=== PATIENT | male | born 1980 | race Two or more races ===

== ENCOUNTER 2017-03-24 10:43 | Emergency (ER) | payer SELFPAY ==
[~2017-03-24] VITALS: Ht 180.3 cm; Wt 104.3 kg
[~2017-03-24 10:43] MED LIST: BENA40TA2 PO; CARV6.25 PO; LORA2TAB95 PO
--- NOTE | 2017-03-24 11:00 | NUR ---
PT AMBULATORY TO ER BED 09. C/O RLQ ABDOMINAL PAIN. NOTICED A "BUMPED" 10 DAYS AGO. WENT TO PRIMARY AND TOLD HIM "ITS FAT." HURTS WHEN COUGHING. ALSO C/O NAUSEA. DECREASED FOOD INTAKE DUE TO PAIN. AWAITING MD RUIZ.
--- NOTE | 2017-03-24 11:15 | NUR ---
DR GAUTAM AT BEDSIDE FOR EVAL.
--- NOTE | 2017-03-24 11:27 | NUR ---
Patient discharged to home in stable condition. Written and verbal after care instructions given. Patient verbalizes understanding of instruction.
[2017-03-24 11:28] VITALS: BP 125/77
== END 2017-03-24 11:30 | disposition home or self-care (01) ==
LOC: ER 10:50
DX: K46.9 Unspecified abdominal hernia without obstruction or gangrene (principal); I10 Essential (primary) hypertension; E11.9 Type 2 diabetes mellitus without complications
CPT/HCPCS: A4606; Z7610